=== PATIENT | female | born 1990 | race Caucasian/White ===

== ENCOUNTER → 2016-07-03 | Day surgery (SDC) | payer OTHER ==
[~2016-07-03] VITALS: Ht 152.4 cm; Wt 63.5 kg
[~2016-07-03] MED LIST: AMOXICILLIN875 M1 PO; AUGMENTIN 875 M1 TAB PO; BENADRYL ALLERG25 MG PO; FLEXERIL10 MG PO; FLONASE120 SPRAY/ NASB; IBUPROFEN800 M1 PO; IBUPROFEN800 MG PO; MINASTRIN 24 FE1 KIT PO; PERCOCET 5-3251 EACH PO; PREDNISONE 20MG20 MG PO; VICODIN 5-3001 EACH PO; ZITHROMAX Z-PA250 M1 PO; ZOFRAN ODT4 M1 SL
--- NOTE | 2016-07-03 17:08 | Operative Report ---
Operative/Inv Procedure Report Surgery Date: 07/03/16 Name of Procedure: Laparoscopic cholecystectomy Pre-Operative Diagnosis: Symptomatic gallstones Post-Operative Diagnosis: Same Estimated Blood Loss: scant Surgeon/Sales And Marketing Administrator: NEO PANCHAL,SHEEBA PEDROZA Anesthesia: general endotracheal tube Operative/Procedure Note Note: Patient was positioned supine. After successful induction of general anesthesia, the patient's abdomen was clipped, prepped and draped in the usual sterile fashion. Local anesthetic was injected at the top of the umbilicus and then a curved horizontal incision little over a centimeter was made there with a 15 blade and then deepened to the midline fascia which was incised vertically a little over a centimeter. Both sides were secured with 0 Vicryl stay sutures and then the thin peritoneal layer was entered, 10 mm Romero trocar inserted obliquely to the right, and the gas was turned on to 15 mm. After insufflation and repositioning to reverse Trendelenburg, 3 more dissecting 5 mm trochars were placed in the right subcostal area, first lateral, then mid-subcostal, then subxiphoid. The gallbladder fundus was grasped from the lateral port and retracted up over the edge of the liver and then we dissected out the area of the triangle of Calot while retracting the infundibulum caudally / laterally. First the cystic duct was identified, isolated at the neck, clipped 3 times, divided after the second clip and then in similar fashion the cystic artery was identified medially, dissected and divided. Then the gallbladder was from the liver bed using cautery then lowered into an Endobag and removed through the umbilical incision. The instruments and then the trochars were removed letting the gas escape. The fascial incision was closed with a figure 8 Vicryl then all 4 skin incisions were closed with interrupted subcuticular 4-0 Monocryl, followed by Mastisol Steri-Strips and Bandaids. Estimated blood loss was minimal, lap and sponge counts were correct, wound expectancy was clean- contaminated, IV fluids crystalloid, complications none, patient tolerated the procedure well and was returned to the recovery room in satisfactory condition.
== END ==
LOC: STS 03:18
DX: K80.10 Calculus of gallbladder with chronic cholecystitis without obstruction (principal); J45.909 Unspecified asthma, uncomplicated; F17.200 Nicotine dependence, unspecified, uncomplicated
CPT/HCPCS: 81025; 88304; J0690; J2250; J2405

== ENCOUNTER 2016-07-30 23:35 | Emergency (ER) | payer OTHER ==
[~2016-07-30 23:35] MED LIST changes: -AMOXICILLIN875 M1 PO; -IBUPROFEN800 M1 PO; -VICODIN 5-3001 EACH PO
== END 2016-07-31 01:55 | disposition admitted as inpatient to this hospital (09) ==
LOC: ERH 23:35
DX: R10.9 Unspecified abdominal pain (principal)
CPT/HCPCS: 81025

== ENCOUNTER 2016-09-11 06:57 | Emergency (ER) | payer OTHER ==
[~2016-09-11] VITALS: Ht 152.4 cm; Wt 59.0 kg
[2016-09-11 07:00] VITALS: BP 180/88
--- NOTE | 2016-09-11 07:08 | ED THROAT/DENTAL COMPLAINT ---
History of Present Illness General Chief Complaint: Sore Throat, Dental Pain Stated Complaint: DENTAL PAIN Source: patient Exam Limitations: no limitations Vital Signs & Intake/Output Vital Signs & Intake/Output Vital Signs Date Time Temp Pulse Resp B/P B/P Pulse O2 O2 Flow FiO2 Mean Ox Delivery Rate 09/11 0700 97.3 84 16 180/88 98 Room Air Allergies Coded Allergies: Sulfa (Sulfonamide Antibiotics) (Severe, RASH 11/13/15) latex (Severe, RASH 11/13/15) Uncoded Allergies: HORNETS (Severe, BREATHING TROUBLE 12/27/11) Reconcile Medications Amoxicillin 875 MG TABLET 1 TAB PO BID INFECTION AMOXICILLIN/POTASSIUM CLAV (Augmentin 875-125 Tablet) 875 MG/125 MG TAB 1 TAB PO BID SINUSITIS CYCLOBENZAPRINE HCL (Flexeril) 10 MG TAB 1 TAB PO TID PRN MUSCULAR SPASM Hydrocodone/Acetaminophen (Vicodin 5-300 MG Tablet) 5 MG-300 MG TABLET 1 TAB PO BID PRN BREAKTHROUGH PAIN Ibuprofen 800 MG TABLET 1 TAB PO TID PRN PAIN Ibuprofen 800 MG TAB 1 TAB PO TID PRN PAIN Ondansetron (Zofran Odt) 4 MG TAB.RAPDIS 1 TAB SL TID PRN NAUSEA Oxycodone HCl/Acetaminophen (Percocet 5-325 MG Tablet) 1 EACH TABLET 1-2 TAB PO Q6P PRN PAIN Triage Note: COMPLAINS OF R SIDE DENTAL PAIN X 2 DAYS. TAKING MOTRIN WITH NO RELIEF. Triage Nurses Notes Reviewed? yes Onset: Afternoon Duration: day(s): (2) Timing: multiple episodes today Injury Environment: home Severity: moderate, severe No Modifying Factors: none : No Patient currently breastfeeds: No HPI: This is a 26-year-old female presents to the ER with chief complaint of right upper molar pain after cracking her tooth 2 days ago. She states she has a history of a cavity in that same tooth that was diagnosed with she had her wisdom teeth removed. Patient denies any fever or chills. She tried taking 2 800 mg ibuprofen without relief this morning. Denies any other drug use. She is on medications for hypertension. History of cholecystectomy 1 month ago. Past History Travel History Traveled to [place] past 21 day No Medical History Any Pertinent Medical History? 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 No Review of Systems Review of Systems Constitutional: Denies: chills, fever. EENTM: Reports: tooth pain. Respiratory: Denies: cough, short of breath. Cardiovascular: Denies: chest pain, palpitations, peripheral edema. GI: Denies: abdominal pain. Genitourinary: Reports: no symptoms. Musculoskeletal: Reports: no symptoms. Skin: Reports: no symptoms. Neurological/Psychological: Reports: no symptoms. Hematologic/Endocrine: Denies: bruising, bleeding, polyuria, polydipsia. Immunologic/Allergic: Denies: splenectomy. All Other Systems: Reviewed and Negative Physical Exam Physical Exam General Appearance: well developed/nourished, alert, awake Head: atraumatic, normal appearance Eyes: Bilateral: normal appearance, PERRL, EOMI. Nose: normal inspection Mouth/Throat: right upper molar cracked tooth Neck: normal inspection, supple, full range of motion Cardiovascular/Respiratory: normal breath sounds, regular rate/rhythm Neurologic/Psych: no motor/sensory deficits, awake, alert, oriented x 3 Diagram Dental: 1) CRACKED, CARIOUS TOOTH Core Measures ACS in differential dx? No Severe Sepsis Present: No Septic Shock Present: No Progress Differential Diagnosis: carious tooth, tooth fracture Plan of Care: Current Medications Sig/Carmelina Start time Last Medication Dose Stop Time Status Admin Acetaminophen/ 1 TAB ONCE ONE 09/11 0630 UNVr Hydrocodone Bitart 09/11 0731 (Vicodin) Pain control, prophylactic antibiotics and dental follow-up (DAMIAN PANCHAL,ALANNAH) Departure Departure Disposition: HOME OR SELF CARE Condition: Stable Clinical Impression Primary Impression: Cracked tooth Referrals: ROBBIN FORTUNE APRN (PCP/Family) Additional Instructions: Taking medications as prescribed. Prescriptions are at [facility] in [place]. Please follow-up with your dentist or the list of dental clinics. Departure Forms: Customer Survey General Discharge Information Prescriptions: Current Visit Scripts Ibuprofen 1 TAB PO TID PRN PAIN #30 TAB Amoxicillin 1 TAB PO BID #14 TAB Hydrocodone/Acetaminophen (Vicodin 5-300 MG Tablet) 1 TAB PO BID PRN BREAKTHROUGH PAIN #10 TAB
[2016-09-11] MEDS ORDERED: IBUPROFEN800 M1 PO (07:22)
[2016-09-11] MEDS ORDERED: AMOXICILLIN875 M1 PO (07:22)
[2016-09-11] MEDS ORDERED: VICODIN 5-3001 EACH PO (07:24)
== END 2016-09-11 07:34 ==
LOC: ERH 06:57
DX: S02.5XXA Fracture of tooth (traumatic), initial encounter for closed fracture (principal)